=== PATIENT | male | born 1955 | race Caucasian/White ===

== ENCOUNTER → 2017-07-16 | Outpatient (POV) | payer MEDICARE, SELFPAY | PROVIDERS: Visit Provider Internal Medicine | DX: R07.9 Chest pain, unspecified (principal); I25.10 Atherosclerotic heart disease of native coronary artery without angina pectoris; I10 Essential (primary) hypertension; E78.5 Hyperlipidemia, unspecified | CPT/HCPCS: 36415; 80048; 82550; 82553; 84484; 93005 ==

== ENCOUNTER → 2018-01-26 09:57 | Outpatient (CLI) | payer MEDICARE, SELFPAY ==
[2018-01-26 11:05] LABS: Alanine Aminotransferase 48 U/L (12-78); Albumin Level 4.1 gm/dL (3.4-5.0); Alkaline Phosphatase 124 U/L (46-116); Aspartate Amino Transferase 25 U/L (15-37); Bilirubin,Direct 0.1 mg/dL (0.0-0.2); Bilirubin,Indirect 0.3 mg/dL (0.0-0.9); Bilirubin,Total 0.4 mg/dL (0.2-1.0); Chol/HDL Ratio 3.8 (1-3.5); Cholesterol 226 mg/dL (140-200); HDL Cholesterol 59 mg/dL (27-67); LDL Cholesterol 154 mg/dL (0-130); Total Protein,Serum 7.2 gm/dL (6.4-8.2); Triglycerides 63 mg/dL (30-200); VLDL Cholesterol 13 mg/dL (0-40)
== END ==
PROVIDERS: Visit Provider Urology
DX: E78.5 Hyperlipidemia, unspecified (principal); I10 Essential (primary) hypertension
CPT/HCPCS: 36415; 80061; 80076

== ENCOUNTER → 2018-04-14 10:47 | Outpatient (CLI) | payer MEDICARE, SELFPAY ==
[2018-04-14 13:39] LABS: Alanine Aminotransferase 57 U/L (12-78); Albumin Level 4.2 gm/dL (3.4-5.0); Alkaline Phosphatase 111 U/L (46-116); Aspartate Amino Transferase 26 U/L (15-37); Bilirubin,Direct 0.1 mg/dL (0.0-0.2); Bilirubin,Indirect 0.3 mg/dL (0.0-0.9); Bilirubin,Total 0.4 mg/dL (0.2-1.0); Chol/HDL Ratio 2.5 (1-3.5); Cholesterol 157 mg/dL (140-200); HDL Cholesterol 64 mg/dL (27-67); LDL Cholesterol 78 mg/dL (0-130); Total Protein,Serum 7.3 gm/dL (6.4-8.2); Triglycerides 75 mg/dL (30-200); VLDL Cholesterol 15 mg/dL (0-40)
== END ==
PROVIDERS: PCP Nurse Practitioner Family; Visit Provider Internal Medicine
DX: E78.4 Other hyperlipidemia (principal); I25.10 Atherosclerotic heart disease of native coronary artery without angina pectoris; I42.9 Cardiomyopathy, unspecified; J44.9 Chronic obstructive pulmonary disease, unspecified; N18.2 Chronic kidney disease, stage 2 (mild); R06.09 Other forms of dyspnea; Z87.891 Personal history of nicotine dependence
CPT/HCPCS: 36415; 80061; 80076

== ENCOUNTER → 2020-03-22 10:23 | Outpatient (CLI) | payer MEDICARE, SELFPAY ==
--- NOTE | 2020-03-22 10:24 | NM_ITS ---
APPROVED REPORT Exam: Nuclear Stress Test Indication: CAD, HX M.I., HTN, HYPERLIPIDEMIA, FM HX., ANGINA, SYNCOPE, FATIGUE Patient Location: Outpatient Stress Tech: Imani Nixon MA Tech:Gricel Anderson, ARRT, RT (R)(N) Ht: 5 ft 11 in Wt: 187 lbs HR: 74 bpm BP: 123 7/72 mmHg BSA: 2.05 m2 BMI: 26.0 History: CAD, HX M.I., HTN, HYPERLIPIDEMIA, FM HX., ANGINA, SYNCOPE, FATIGUE Procedure: Patient received a 0.4 mg of intravenous Lexiscan, resting heart rate 74 bpm, resting blood pressure 123/72 mmHg, with Lexiscan maximum heart rate achived was 98 bpm which is Less than 85 % of the maximum predicted heart rate and blood pressure was 143/65 mmHg. With Lexiscan, patient denied any complaint of chest pain. Electrocardiogram Resting electrocardiogram showed sinus rhythm, with Lexiscan there is less than 1.[address] segment depression noted from the baseline EKG. The EKG portion of the Lexiscan Myoview is nondiagnostic. Cardiac Stress and Resting SPECT Images: Cardiac Stress and Resting SPECT images were obtained using technetium 99m Myoview 32.0 mCi stress and 10.62 mCi at rest. Gated SPECT for the analysis of segmental wall motion and calculation of the ejection fraction also done. Cardiac stress and resting SPECT images show fixed defect involving the inferoseptal wall with normal contractility and the gated SPECT is likely secondary to soft tissue attenuation, no reversible ischemia seen. Computer derived ejection fraction is over 65% with no regional wall motion abnormality, right ventricle is normal size and contractility. Conclusion: 1. The EKG portion of the Lexiscan Myoview is nondiagnostic. 2. No scintigraphic evidence of reversible ischemia seen, computer derived ejection fraction is over 65% with no regional wall motion abnormality, right ventricle is normal size and contractility. 3. Likely normal Lexiscan Myoview study. Electronically signed by : Tyree Moore, 03/23/2020 10:36:06
--- NOTE | 2020-03-22 10:24 | CA_ITS ---
APPROVED REPORT EXAM: Comprehensive 2D, Doppler, and color-flow Echocardiogram Regional Sales Executive: Madeline Savage RT(R) Ht: 5 ft 11 in Wt: 187lbs BSA: 2.05 BP: 119/57 mmHg Indications: CP, CAD, edema, HTN, hyperlipidemia 2D Dimensions LVOT 1.84 cm (M/F) 1.5-2.5 M-Mode Dimensions RVDd 2.69 cm (0.9-2.6) LVDd 3.64 cm (3.5-5.7) LVDs 2.54 cm (3.5-5.7) IVSd 1.10 cm (0.6-1.1) PWd 1.21 cm (0.6-1.1) EF (Teich) 58.50% FS 30.20% EDV (Teich) 55.90 mL ESV (Teich) 23.20 mL LV Diastology E/A Ratio 1.00 Mitral Valve MV A Velocity 87.00 (40-130 cm/s) Left Ventricle Left atrium is mildly enlarged, left ventricle is normal size, mild concentric left ventricular hypertrophy, visually estimated ejection fraction 55% with no regional wall motion abnormality. Grade 1 diastolic dysfunction seen without tissue Doppler evidence of raise left atrial pressure. Right Ventricle Right atrium and right ventricular normal size and contractility. Aortic Valve Aortic valve is thickened and calcified leaflet, display good mobility, there is no aortic stenosis or aortic insufficiency. Mitral Valve Mitral valve is grossly normal, there is mild mitral regurgitation. Tricuspid Valve Tricuspid valve is grossly normal, there is mild tricuspid regurgitation, tricuspid regurgitation jet velocity is inadequate for calculation of the right ventricular systolic pressure. Pulmonic Valve Pulmonic valve is poorly visualized. Great Vessels Aortic root is normal size. Pericardium No significant pericardial effusion noted. Conclusion 1. Mildly enlarged left atrium, normal left ventricular size, mild concentric left ventricular hypertrophy, visually estimated ejection fraction 55% with no regional wall motion abnormality, grade 1 diastolic dysfunction seen without tissue Doppler evidence of raise left atrial pressure. 2. Mild mitral and tricuspid regurgitation. 3. No significant pericardial effusion noted. Electronically signed by : Tyree Moore, 03/23/2020 14:57:50
--- NOTE | 2020-03-22 10:24 | CA_ITS ---
APPROVED REPORT Exam: Pharmacologic Technologist: Parvin Koenig, Ht: 5 ft 11 in Wt: 187 lbs BSA: 2.05 m2 HR: 74 bpm BP: 123/72 mmHg Medical History Medications: Carvedilol,,,,, Buspirone,,,,, CloPIdogrel,,,,, Nitroglycerin,,,,, AtorvaASTATIN,,,,, AmOLODIPNE,,,,, Omepazole,,,,, Asprin,,,,, Stress Test Details Test: LEXISCAN HR Resting HR: 82 bpm Max Heart Rate (APMHR): 156 bpm Max HR Achieved: 107 bpm Target HR (85% APMHR): 132 bpm % of APMHR: 68 Recovery HR: 94 bpm BP Resting BP: 123/72 mmHg Max BP: 149/71 mmHg Recovery BP: 141.0/69.0 mmHg ECG Clinical Exercise duration: 04:00 min Highest Stage Achieved: Exercise capacity: 1.0 METs Stress ECG Conclusion Resting EKG: Normal Sinus Rhythm, Low Voltage QRS Symptoms: Shortness of Air, Nausea, Malaise. No Chest Pain Arrhythmia/Ectopy: None ST-T Changes: No Significant changes Conclusion: Unremarkable Lexican stress, Myoview reported separately Test Summary REST . . . . . . . Resting REST 02:57 . . 82 . 123/ 72 . . Stage 1 . . . . . . . Myoview Injected Stage 1 01:00 . . 107 . . . . Stage 2 01:00 . . 94 . 143/ 65 . . Stage 3 01:00 . . 93 . 138/ 68 . . Stage 4 01:00 . . 95 . 149/ 71 . Stop exercise at 04:00 RECOVERY 01:00 . . 95 . . . . RECOVERY 02:00 . . 85 . 141/ 69 . . RECOVERY 03:00 . . 87 . 144/ 66 . . RECOVERY 04:00 . . 79 . 144/ 66 . . RECOVERY 04:29 . . 85 . 124/ 60 . . Electronically signed by : Tyree Moore, 03/23/2020 10:34:12
--- NOTE | 2020-03-22 12:59 | HMH.ITSHM ---
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 []OMEPRAZOLE NITRO LISINOPRIL CLOPIDOGREL CARVEDILOL ATORVASTATIN ASA AMLODIPINE
== END ==
PROVIDERS: PCP Family Medicine; Visit Provider Internal Medicine Cardiovascular Disease
DX: E78.5 Hyperlipidemia, unspecified (principal); I10 Essential (primary) hypertension; I20.9 Angina pectoris, unspecified; R42 Dizziness and giddiness; R53.83 Other fatigue; R60.9 Edema, unspecified
CPT/HCPCS: 78452; 93017; 93306; A9502; J2785

== ENCOUNTER → 2020-10-09 09:29 | Outpatient (CLI) | payer MEDICARE, SELFPAY ==
[2020-10-09 10:34] LABS: Alanine Aminotransferase 48 U/L (12-78); Albumin Level 4.4 g/dl (3.5-5.0); Alkaline Phosphatase 113 U/L (38-126); Aspartate Amino Transferase 42 U/L (17-59); Bilirubin,Indirect 0.4 mg/dL (0.0-0.9); Bilirubin,Total 0.4 mg/dl (0.2-1.3); Bilirubin,Unconjugated 0.4 mg/dL (0.0-1.1); Chol/HDL Ratio 3.1 (1-3.5); Cholesterol 191 mg/dl (140-200); HDL Cholesterol 61 mg/dl (40-60); Total Protein,Serum 7.6 g/dl (6.3-8.2); Triglycerides 86 mg/dl (30-150); VLDL Cholesterol 17 mg/dL (0-40)
[2020-10-09 10:45] LABS: Direct LDL Cholesterol 92.69 mg/dL (100-129)
== END ==
PROVIDERS: Visit Provider Physician Assistant
DX: E78.5 Hyperlipidemia, unspecified (principal); I20.9 Angina pectoris, unspecified
CPT/HCPCS: 36415; 80061; 80076

== ENCOUNTER → 2021-07-10 10:25 | Outpatient (CLI) | payer MEDICARE, SELFPAY ==
[2021-07-10 12:07] LABS: Alanine Aminotransferase 38 U/L (12-78); Albumin Level 4.5 g/dl (3.5-5.0); Alkaline Phosphatase 104 U/L (38-126); Aspartate Amino Transferase 41 U/L (17-59); Bilirubin,Direct 0.1 mg/dl (0.0-0.4); Bilirubin,Indirect 0.4 mg/dL (0.0-0.9); Bilirubin,Total 0.5 mg/dl (0.2-1.3); Bilirubin,Unconjugated 0.3 mg/dL (0.0-1.1); Chol/HDL Ratio 1.8 (1-3.5); Cholesterol 130 mg/dl (140-200); HDL Cholesterol 71 mg/dl (40-60); Total Protein,Serum 7.3 g/dl (6.3-8.2); Triglycerides 71 mg/dl (30-150); VLDL Cholesterol 14 mg/dL (0-40)
[2021-07-10 12:18] LABS: Direct LDL Cholesterol 42.18 mg/dL (100-129)
== END ==
PROVIDERS: Visit Provider Internal Medicine
DX: E78.5 Hyperlipidemia, unspecified (principal); I10 Essential (primary) hypertension; I20.9 Angina pectoris, unspecified
CPT/HCPCS: 36415; 80061; 80076

== ENCOUNTER → 2022-12-10 12:22 | Outpatient (CLI) | payer MEDICARE, SELFPAY ==
--- NOTE | 2022-12-10 | CA_ITS ---
APPROVED REPORT Exam: Pharmacologic Technologist: SANTOS JEFFRIES, Ht: 5 ft 11 in Wt: 190 lbs BSA: 2.06 m2 HR: 74 bpm BP: 130/68 mmHg Rhythm: NSR, low voltage QRS Indications: SOA Medical History Medications: Amlodipine,,,,, Lisinopril,,,,, Asa,,,,, Pantoprazole,,,,, Carvedilol,,,,, Buspirone,,,,, MeLOXICAM,,,,, Plavix,,,,, Fluoxetine,,,,, Nitro,,,,, MethIMAZOLE,,,,, Evolocumab,,,,, Cardiac Risk Factors: HTN, Hyperlipidemia, Smoking Stress Test Details Test: LEXISCAN HR Resting HR: 78 bpm Max Heart Rate (APMHR): 154 bpm Max HR Achieved: 93 bpm Target HR (85% APMHR): 131 bpm % of APMHR: 60 Recovery HR: 76 bpm BP Resting BP: 130/68 mmHg Max BP: 141/69 mmHg Recovery BP: 127.0/71.0 mmHg ECG Resting ECG: NSR, low voltage QRS Stress ECG: No change Clinical Exercise duration: 04:05 min Highest Stage Achieved: Stress ECG Conclusion During lexiscan pt experienced mild chest pressure, SOA, and mild stomach discomfort. No arrhythmias noted. At baseline, ECG demosntrated normal sinus rhythm with low voltages. Following regadenoson administration, no significant changes were present. Unremarkable lexiscan stress. Myoview images reported separately. Test Summary REST . . . . . . . Resting Sitting REST 04:05 . . 78 . 130/ 68 . . Stage 1 01:00 . . 93 . . . . Stage 2 . . . . . . . chest pressure Stage 2 01:00 . . 83 . 141/ 69 . . Stage 3 01:00 . . 80 . 141/ 67 . . Stage 4 01:00 . . 79 . 132/ 72 . . Stage 4 01:05 . . 78 . 132/ 72 . Stop exercise at 04:05 RECOVERY 01:00 . . 76 . . . . RECOVERY 02:00 . . 82 . 127/ 71 . . RECOVERY 03:00 . . 77 . 132/ 61 . . RECOVERY 03:19 . . 75 . 132/ 61 . . Electronically signed by : Aydee Gonzales, 12/10/2022 23:16:08
--- NOTE | 2022-12-10 12:23 | NM_ITS ---
APPROVED REPORT Exam: Nuclear Stress Test Indication: soa..fatigue..syncope..chest pain Patient Location: Outpatient Stress Tech: Betty Junior [place] Tech:PUMA Cabral RT (R)(N)(M) Ht: 5 ft 11 in Wt: 190 lbs HR: 74 bpm BP: 130/68 mmHg BSA: 2.06 m2 TID: 1.05 BMI: 26.4 History: soa..fatigue..syncope..chest pain Procedure: Patient received 0.4 mg of intravenous Lexiscan, resting heart rate 74 bpm, resting blood pressure 130/68 mmHg, with Lexiscan maximum heart rate achieved was 87 bpm which is 85 % of the maximum predicted heart rate and blood pressure was 141/69 mmHg. Cardiac Stress and Resting SPECT Images: Cardiac Stress and Resting SPECT images were obtained using technetium 99m Myoview 30.8 mCi stress and 10.87 mCi at rest. Resting and stress imaging demonstrates a medum-sized, moderate, predominantly fixed perfusion defect in the basal septal LV wall with some regional reversibility. Gated imaging demonstrates a normal LV global systolic function. The basal septal wall appears mildly hypokinetic. LVEF is calculated at 72% Conclusion: Medum-sized, moderate, predominantly fixed perfusion defect in the basal septal LV wall with a surrounding region of reversibility. 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 Normal LV global systolic function with mild hypokinesis in the basal septal wall. LVEF is calculated at 72%. Electronically signed by : Aydee Gonzales, 12/10/2022 23:33:48
== END ==
PROVIDERS: PCP Family Medicine; Visit Provider Physician Assistant
DX: I10 Essential (primary) hypertension; I25.10 Atherosclerotic heart disease of native coronary artery without angina pectoris; N18.2 Chronic kidney disease, stage 2 (mild); R07.9 Chest pain, unspecified; E78.49 Other hyperlipidemia
CPT/HCPCS: 78452; 93017; 93306; A9502; J2785

== ENCOUNTER 2022-12-24 09:44 | Day surgery (SDC) | payer MEDICARE, SELFPAY ==
[2022-12-24] VITALS (10 sets, daily range): BP systolic 95–138; BP diastolic 40–77; PULSE 75–92; RESP 16–18; TEMP 36.9; O2SAT 91–97; BMI 26.6
--- NOTE | 2022-12-24 07:06 | IR_ITS ---
APPROVED REPORT Patient Location: Outpatient PROCEDURES Selective coronary angiogram INDICATION Angina pectoris, Abnormal Myoview Informed consent was obtained prior to the procedure. COMPLICATIONS None Estimated Blood Loss: Less than 10 mls TECHNIQUE One percent lidocaine used to anesthetize the right anterior aspect of the wrist. The right radial artery was accessed via the Seldinger technique. A 6 Kyrgyz sheath was placed in the right radial artery. 150 mg magnesium sulfate, 800 mcg of nitroglycerin, 1mg Lidocaine and 5000 U Heparin were given through the arterial sheath. The papa catheter was also used to perform selective coronary angiogram. At the end of the procedure the sheath was removed good hemostasis was achieved using Traclet band, patient was transferred to the postop holding area in stable condition. ANGIOGRAPHIC RESULTS The left main artery Normal The left anterior descending artery Mild proximal and mid vessel 10% luminal irregularities The circumflex artery Has a stent in the proximal to mid segment which is widely patent free of in-stent restenosis with excellent proximal distal transitioning The right coronary artery Has a stent in the mid segment which is widely patent free of in-stent restenosis with excellent proximal distal transitioning The ALCARAZ ventriculogram reveals Not performed The left ventricular end-diastolic pressure Not measured IMPRESSION Check echocardiogram to assess left ventricular function Widely patent coronaries as described above Patient was previously diagnosed with obstructive sleep apnea and prescribed CPAP machine however he has been noncompliant. I suspect patient's severe untreated obstructive sleep apnea is the etiology for associated symptoms PLAN 1. Refer to Dr. Mack for reassessment of obstructive sleep apnea with possible reimplementation of CPAP machine if she feels appropriate 2. Risk factor modification for coronary disease 3. Continue medical management Electronically signed by : Joel Helms MD 12/24/2022 14:38:33
[2022-12-24 10:25] LABS: Basophils # 0.1 K/mm3 (0-0.2); Basophils % 0.7 % (0.1-2.0); Chloride 102 mmol/L (98-107); Eosinophils # 0.1 K/mm3 (0.0-0.4); Eosinophils % 1.4 % (0.1-12.0); Hematocrit 45.8 % (42.0-52.0); Lymphocytes # 1.8 K/mm3 (0.7-4.5); Lymphocytes % 19.1 % (10-50); Mean Corpuscular HGB Conc 32.8 g/dL (31.8-35.4); Mean Corpuscular Hemoglobin 30.5 pg (27.0-31.2); Mean Corpuscular Volume 93.2 fl (80-94); Mean Platelet Volume 6.8 fl (7.4-10.4); Monocytes # 0.7 K/mm3 (0.1-1.0); Monocytes % 7.3 % (1.7-9.3); Neutrophils # 6.7 K/mm3 (1.8-7.8); Neutrophils % 71.6 % (37.0-80.0); Platelet Count 297 K/mm3 (142-424); Red Blood Count 4.92 M/mm3 (4.60-6.20); Red Cell Distribution Width 12.9 % (11.5-17.5); White Blood Count 9.3 K/mm3 (4.8-10.8)
[2022-12-24 10:26] LABS: Potassium 4.5 mmoL/L (3.5-5.1); Sodium 140 mmol/L (136-145)
[2022-12-24 10:28] LABS: Blood Urea Nitrogen 23 mg/dl (9-20); Creatinine Clearance Estimated 52 mL/min (50-200); Estimated Glomerular Filt Rate 41 ml/min (>60); GFR (African American) 49 ML/MIN (>60)
[2022-12-24 10:29] LABS: Anion Gap 15.5 mEq/L (5-15); Calcium 9.4 mg/dl (8.4-10.2); Carbon Dioxide 27 mmol/L (22.0-30.0); Glucose 125 mg/dl (74-100)
== END 2022-12-24 15:14 | disposition home or self-care (01) ==
PROVIDERS: PCP Family Medicine; Visit Provider Internal Medicine
DX: I25.118 Atherosclerotic heart disease of native coronary artery with other forms of angina pectoris (principal); I12.9 Hypertensive chronic kidney disease with stage 1 through stage 4 chronic kidney disease, or unspecified chronic kidney disease; N18.2 Chronic kidney disease, stage 2 (mild); R94.30 Abnormal result of cardiovascular function study, unspecified; Z95.5 Presence of coronary angioplasty implant and graft
CPT/HCPCS: 80048; 85025; 93458; 99152; C1725; C1769; J1644; Q9967

== ENCOUNTER → 2023-02-07 12:59 | Outpatient (CLI) | payer MEDICARE, SELFPAY | PROVIDERS: PCP Family Medicine; Visit Provider Specialist | DX: G47.33 Obstructive sleep apnea (adult) (pediatric) (principal) | CPT/HCPCS: G0399 ==

== ENCOUNTER → 2023-06-10 20:11 | Outpatient (CLI) | payer MEDICARE, SELFPAY | PROVIDERS: PCP Family Medicine; Visit Provider Specialist | DX: G47.33 Obstructive sleep apnea (adult) (pediatric) (principal); G47.31 Primary central sleep apnea | CPT/HCPCS: 95811 ==

== ENCOUNTER 2024-06-28 13:54 | Outpatient (CLI) | payer MEDICARE, SELFPAY ==
[2024-06-28 14:47] LABS: Basophils # 0.1 K/mm3 (0-0.2); Basophils % 0.9 % (0.1-2.0); Eosinophils # 0.1 K/mm3 (0.0-0.4); Eosinophils % 1.1 % (0.1-12.0); Hematocrit 45.4 % (42.0-52.0); Hemoglobin 15.3 g/dL (14.1-18.0); Lymphocytes # 2.6 K/mm3 (0.7-4.5); Mean Corpuscular HGB Conc 33.7 g/dL (31.8-35.4); Mean Corpuscular Hemoglobin 31.2 pg (27.0-31.2); Mean Corpuscular Volume 92.5 fl (80-94); Mean Platelet Volume 7.2 fl (7.4-10.4); Monocytes # 0.7 K/mm3 (0.1-1.0); Monocytes % 7.3 % (1.7-9.3); Neutrophils # 6.2 K/mm3 (1.8-7.8); Neutrophils % 63.6 % (37.0-80.0); Platelet Count 277 K/mm3 (142-424); Red Blood Count 4.91 M/mm3 (4.60-6.20); Red Cell Distribution Width 13.5 % (11.5-17.5); White Blood Count 9.7 K/mm3 (4.8-10.8)
[2024-06-28 15:25] LABS: Alanine Aminotransferase 36 U/L (12-78); Albumin Level 4.4 g/dl (3.5-5.0); Alkaline Phosphatase 119 U/L (38-126); Anion Gap 13.4 mEq/L (5-15); Aspartate Amino Transferase 33 U/L (17-59); Bilirubin,Direct 0.3 mg/dl (0.0-0.4); Bilirubin,Indirect 0.1 mg/dL (0.0-0.9); Bilirubin,Total 0.4 mg/dl (0.2-1.3); Blood Urea Nitrogen 20 mg/dl (9-20); Calcium 9.3 mg/dl (8.4-10.2); Carbon Dioxide 25 mmol/L (22.0-30.0); Chloride 107 mmol/L (98-107); Chol/HDL Ratio 2.1 (1-3.5); Cholesterol 120 mg/dl (140-200); Estimated Glomerular Filt Rate 50 ml/min (>60); GFR (African American) 61 ML/MIN (>60); Glucose 98 mg/dl (74-100); HDL Cholesterol 58 mg/dl (40-60); Potassium 4.4 mmoL/L (3.5-5.1); Sodium 141 mmol/L (136-145); Total Protein,Serum 6.7 g/dl (6.3-8.2); Triglycerides 138 mg/dl (30-150); VLDL Cholesterol 28 mg/dL (0-40)
[2024-06-28 15:36] LABS: Direct LDL Cholesterol 42.44 mg/dL (100-129)
[2024-06-28 15:56] LABS: Thyroid Stimulating Hormone 2.12 uIU/mL (0.465-4.68)
== END 2024-06-28 23:59 | disposition home or self-care (01) ==
LOC: LAB 13:57
PROVIDERS: PCP Family Medicine; Visit Provider Physician Assistant
DX: N18.32 Chronic kidney disease, stage 3b (principal); I25.10 Atherosclerotic heart disease of native coronary artery without angina pectoris; G47.33 Obstructive sleep apnea (adult) (pediatric); I10 Essential (primary) hypertension; J44.9 Chronic obstructive pulmonary disease, unspecified; R00.2 Palpitations; E78.49 Other hyperlipidemia
CPT/HCPCS: 36415; 80048; 80061; 80076; 83735; 84439; 84443; 85025; 93225; 93227

== ENCOUNTER 2024-11-17 13:54 | Outpatient (CLI) | payer MEDICARE, SELFPAY ==
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
--- OUTSIDE RECORDS SUMMARY | 2024-11-17 13:57 | XMS_ITS | Data Portability ---
Author Organization [facility] [place] [facility] Address [address] [place] [address] Care Team Providers Care Application Specialist Name Role Phone ELEONORA BOND Referring Provider [phone] LAWRENCE VILLARREAL Primary Care Provider MARIANGEL MEDRANO Yoga Coordinator Assessment Encounter Date Assessment Date Assessment LastModified by Organization Details LastModified Time 02/24/2024 02/24/2024 Mr. Mancilla will finish the course of Bactrim. He understands that if he should have any worsening symptoms such as worsening redness or any drainage or any issues with the incisions themselves to give our office a call. He and his understand and agree with this plan. [email or web address] Not available 02/24/2024 11:18:41 05/05/2024 05/05/2024 This is a 69-year-old gentleman seen today for follow-up evaluation of low back pain and stenosis. Recently underwent RFA which has provided ongoing relief. Approximately 2 weeks ago began developing pain referring in the right L3 distribution and occasionally a right L5 distribution. It went away for a couple days but now has returned. Symptoms are not enough to pursue treatment at this time PMH: PSHx: L4-5 fusion, IT pump s/p [...] therapy has included: Bilateral L2-3 MBB RFA short-term benefit Previous IT pump entering at L1-2 s/p explant 03/13/2022 right L3-4 and L4-5 TFESI Presentation is consistent with adjacent level spondylosis and stenosis. I recommend: 1. Consider L2-3 IL DANY for adjacent level stenosis. He will notify me if he wishes to proceed. 2. Refilled baclofen 3. Follow-up in 3 months External records were reviewed and discussed as above, including imaging, clinical notes, and relevant labs. Not available 05/05/2024 13:28:13 08/04/2024 08/04/2024 This is a 69-year-old gentleman seen today for follow-up evaluation. He still has some intermittent radicular symptoms and low back pain that is associated with ambulation. PMH: PSHx: L4-5 fusion, IT pump s/p [...] he wishes to proceed. 2. Refilled baclofen 3. Follow-up in 3 months 4. Alternative considerations would include SCS or neurosurgical evaluation External records were reviewed and discussed as above, including imaging, clinical notes, and relevant labs. Not available 08/04/2024 13:29:21 10/20/2024 10/20/2024 This is a 69-year-old gentleman [...] including imaging, clinical notes, and relevant labs. Not available 10/20/2024 13:40:40 Plan of Treatment Reminders Order Date Submit Date Provider Last Modified By Organization Details Last Modified Time Details Appointments RECHECK 2024 02:15P Stevenson BOND MD Not available Not available Not available Lab None recorded. Referral None recorded. Procedures None recorded. Surgeries None recorded. Imaging None recorded. Medication Orders baclofen 10 mg tablet 2024 025 [facility]/Pharmacy #[id number], [address] [place] [address], [address], 10/20/2024 14:55:38 baclofen 10 mg tablet 2023 024 [facility]/Pharmacy #[id number], [address] [place], [address], 05/05/2024 13:29:21 Patient TargetsNo targets recorded. Patient InstructionsNo instructions recorded. Reason for Referral None Reported. Problems No Known Problems Procedures Surgical History Date Name Laterality Status Provider Name and Address Organization Details Recorded Time 4 Lumbar RFA Bilateral - Toan completed ELEONORA BOND MD [address] [place] [address], [phone], [facility] 03/15/2024 12:57:15 4 Lumbar MBB bilateral 2 level - Toan completed ELEONORA BOND MD [address] [place] [address], [phone], [facility] 02/19/2024 14:13:46 4 Lumbar MBB bilateral 2 level - Toan completed ELEONORA BOND MD [address] [place] [address], [phone], [facility] 02/09/2024 14:14:[address] [facility] 10/23/2023 13:04:23 0 procedure on appendix completed [facility] 10/23/2023 13:04:39 Imaging Results None recorded. Procedure Notes None recorded. Medical Equipment None Reported. Allergies Allergen ID Allergen Name Allergen Category Reaction Reaction Severity Criticality Documentation Date Start Date Code Code System Note Provider Name and Address Organization Details Recorded Time 765768 Product containin g penicilli n (product) medicatio n Not available Not available Not available 10/02/2022 64250 8001 SNOMED Evette Tirado [facility] 13:24:16 009212 Non-stero idal anti-infl ammatory agent (product) medicatio n Not available Not available Not available 05/05/2024 64506 005 SNJETT Bello [facility], [facility] 13:15:13 Medications Name Sig Start Date Stop [...] 6 hours by oral route as needed. 01/13 completed Not Available Not Available Not Available [...] height Body mass index (BMI) Body weight Body temperature Oxygen saturation Oxygen saturation in Arterial blood by Pulse oximetry Heart rate Systolic blood pressure Diastolic blood pressure Provider Name and Address Organization Details Last Updated DateTime 4 180.34 cm 24.7 kg/m2 59292.8 5 g 97.9 [degF] 97 % 97 % 86 /min 110 mm[Hg] 60 mm[Hg] Adriana Bello [facility] 4 13:12:04 Date Recorded Body height Body mass index (BMI) Body weight Body temperature Oxygen saturation Oxygen saturation in Arterial blood by Pulse oximetry Heart rate Systolic blood pressure Diastolic blood pressure Provider Name and Address Organization Details Last Updated DateTime 5 180.34 cm 27.2 kg/m2 01935.2 1 g 97.2 [degF] 98 % 98 % 72 /min 108 mm[Hg] 58 mm[Hg] Mariam Kashmir [facility] 5 13:16:06 Date Recorded Body height Body mass index (BMI) Body weight Heart rate Oxygen saturation Oxygen saturation in Arterial blood by Pulse oximetry Body temperature Systolic blood pressure Diastolic blood pressure Provider Name and Address Organization Details Last Updated DateTime 5 180.34 cm 27.5 kg/m2 70791.8 g 71 /min 99 % 99 % 97.8 [degF] 112 mm[Hg] 58 mm[Hg] Gayathri Rodriguez [facility] 13:08:14 Social History Question Answer Notes LastModified by Organizat ion Details LastModified Time Tobacco Smoking Status Former Smoker Evette Tirado evangelist [facility] 10/02/2022 13:28:11 What Is Your Level Of Alcohol Consumption? None Information not available 10/02/2022 Are You Currently Employed? No [email or web address] Information not available 10/20/2024 When Did You Quit Smoking? 16+yearssinc [email or web address] Information not available 10/02/2022 What Was The Date Of Your Most Recent Tobacco Screening? 10/20/2024 [email or web address] Information not available 10/20/2024 What Is Your Relationship Status? [email or web address] Information not available 10/20/2024 Do You Use [...] Details LastModified Time Unspecified Relation Diabetes mellitus [email or web address] Not available 10/2023 13:03:39 Unspecified Relation Hypertensive disorder [email or web address] Not available 10/2023 13:03:49 Unspecified Relation Heart disease [email or web address] Not available 10/2023 13:03:56 Medical History Condition Response Kidney Stones N Blood Transfusion N Emphysema N Sexually Transmitted Disease N Depression Y COPD N Pneumonia N Anxiety Disorder N Arthritis N Blood Clot N Cancer N Stroke N Neurologic Disorder N Fibromyalgia N Headaches N Kidney Disease Y Endocrine Disorder N Heart Problems Y Skin Problems N Meningitis N Ulcers N Rheumatic Fever N Bleeding Disorder N Tuberculosis N AIDS/HIV N Asthma N Thyroid Disorder Y Hepatitis N Colon/Rectal Disorders N Glaucoma N Measles N Varicose Veins N Attempted Suicide N Hearing Loss Y Radiation Therapy N Blood Thinners Y High Cholesterol Y Liver Disease N Heart Attack ([place]) Y Diabetes N Epilepsy/Seizures N Sleep Apnea Y Hypertension Y Osteoporosis N Past Encounters Encounter ID Performer Location Encounter Start Date Encounter Closed Date Diagnosis/Indication Diagnosis SNOMED-CT Code Diagnosis ICD10 Code Diagnosis Note [id number] ELEONORA BOND MD [facility] [address] [place] [address] 1 10/02/2022 13:07:58 10/02/2022 14:15:26 Degeneration of lumbar intervertebral disc 30076477 M51.36 Lumbar radiculopathy 128 279572 M54.16 [id number] ELEONORA BOND MD [facility] [address] [place] [address] 1 01/03/2023 12:56:54 01/03/2023 15:15:43 Degeneration of lumbar intervertebral disc 08070507 M51.36 Lumbar radiculopathy 128 196349 M54.16 Lumbar post-laminectomy syndrome 532515133 M96.1 [id number] RCAH COLIN PA-C PA[facility] [address] [place] [address] 1 04/02/2023 12:44:01 04/02/2023 15:54:45 Lumbar post-laminectomy syndrome 677920199 M96.1 Degenerati on of lumbar intervertebral disc 75161403 M51.36 Lumbar radiculopathy 128 377892 M54.16 [id number] ELEONORA BOND MD PAIN MED[facility]INE [address] [place] [address] 1 06/18/2023 12:59:16 06/18/2023 15:00:30 Degeneration of lumbar intervertebral disc 28562810 M51.36 Lumbar radiculopathy 128 527615 M54.16 Lumbar post-laminectomy syndrome 844699983 M96.1 Opioid dependence 481077 00 F11.23 [id number] ELEONORA BOND MD [facility] [address] [place] [address] 1 07/09/2023 13:01:59 07/10/2023 09:21:49 Lumbar radiculopathy 730425154 M54.16 Lumbar post-laminectomy syndrome 954944362 M96.1 [id number] ELEONORA BOND MD PAIN MEDICINE [address] [place] [address] 1 07/23/2023 12:50:58 07/23/2023 16:14:09 Degeneration of lumbar intervertebral disc 48597413 M51.36 Displaceme nt of lumbar intervertebral disc 2819600541 M51.26 Lumbar radiculopathy 128 087055 M54.16 Lumbar spondylosis 63793 0009 M47.816 Low back pain 998252182 M54.51 Spinal claudia nosis of lumbar region 62563850 M48.062 Inflammati on of sacroiliac joint 31492790 M46.1 Lumbar post-laminectomy syndrome 003732328 M96.1 [id number] ELEONORA BOND MD [facility]INE [address] [place] [address] 1 08/14/2023 14:44:11 08/15/2023 10:15:15 Degeneration of lumbar intervertebral disc 66095678 M51.36 Lumbar radiculopathy 128 356214 M54.16 Lumbar post-laminectomy syndrome 275100404 M96.1 [id number] ELEONORA BOND MD [facility]INE [address] [place] [address] 1 08/20/2023 13:10:26 08/20/2023 14:42:16 Lumbar radiculopathy 715737641 M54.16 Lumbar spondylosis 92222 0009 M47.816 Lumbar post-laminectomy syndrome 122014131 M96.1 [id number] ELEONORA BOND MD PAIN MED[facility]INE [address] [place] [address] 1 09/17/2023 13:07:38 09/18/2023 07:53:29 Degeneration of lumbar intervertebral disc 30144763 M51.36 Lumbar radiculopathy 128 318125 M54.16 Lumbar post-laminectomy syndrome 003688932 M96.1 [id number] ERICA GARZA PA-C [facility] [address] [facility] [place] [address] 10/23/2023 12:44:54 10/24/2023 10:50:05 Low back pain 327490262 M54.50 Intratheca l implantable infusion pump in situ 0482841956 Z97.8 Lumbar radiculopathy 128 100110 M54.16 [id number] ELEONORA BOND MD PAIN MEDICINE [address] [place] [address] 1 11/12/2023 13:00:32 11/12/2023 16:18:29 Lumbar radiculopathy 863107242 M54.16 Degenerati on of lumbar intervertebral disc 16918942 M51.36 Lumbar post-laminectomy syndrome 404663459 M96.1 Long-term drug therapy 438695015 Z79.899 [id number] GUILLERMO MOORE [facility] [address] [facility] [place] [address] 01/06/2024 12:42:40 01/10/2024 04:16:12 [id number] ELEONORA BOND MD PAIN MEDICINE [address] [place] [address] 1 01/14/2024 13:58:17 01/15/2024 04:16:46 Degeneration of lumbar intervertebral disc 34343329 M51.36 Displaceme nt of lumbar intervertebral disc 5402068885 M51.26 Lumbar spondylosis 52501 0009 M47.816 Spinal claudia nosis of lumbar region 84608480 M48.062 Lumbar post-laminectomy syndrome 103395624 M96.1 [id number] GUILLERMO MOORE MD SURGERY SCHEDULE [address] [place] [address] 1 01/13/2024 14:18:45 01/16/2024 16:24:57 [id number] GUILLERMO MOORE MD [facility] [address] [facility] [place] [address] 01/27/2024 11:00:38 01/28/2024 04:43:22 Chronic pain syndrome 136137740 G89.4 [id number] ELEONORA BOND MD [facility] [address] [place] [address], [place] [address] 02/09/2024 12:37:51 02/09/2024 14:30:39 Lumbar spondylosis 695955867 M47.816 [id number] ELEONORA BOND MD [facility] N[facility] [address] [place] [address], [place] [address] 02/19/2024 13:22:11 02/19/2024 14:52:34 Lumbar spondylosis 763496070 M47.816 [id number] MITCHELL RUIZ PA-C [facility] [address] [place] [address] 02/24/2024 10:47:15 02/27/2024 13:42:31 Infection of skin and/or subcutaneous tissue 87900945 L08.9 [id number] ELEONORA BOND MD [facility] [address] [facility] [place] [address] 1 03/15/2024 12:27:45 03/15/2024 13:54:32 Lumbar spondylosis 206547131 M47.816 [id number] ELEONORA BOND MD PAIN MEDICINE [address] [place] [address] 1 05/05/2024 12:58:18 05/05/2024 15:22:31 Lumbar radiculopathy 207296747 M54.16 Lumbar spondylosis 12743 0009 M47.816 Spinal claudia nosis of lumbar region 03438144 M48.062 Lumbar post-laminectomy syndrome 444602172 M96.1 [id number] ELEONORA BOND MD PAIN MEDICINE [address] [place] [address] 1 08/04/2024 12:56:50 08/04/2024 16:32:12 Degeneration of lumbar intervertebral disc 38140328 M51.369 Lumbar radiculopathy 128 146722 M54.16 Lumbar spondylosis 42139 0009 M47.816 Spinal claudia nosis of lumbar region 26508090 M48.062 Lumbar post-laminectomy syndrome 834680993 M96.1 [id number] ELEONORA BOND MD PAIN MEDICINE [address] [place] [address] 1 10/20/2024 12:52:06 10/20/2024 15:58:58 Lumbar radiculopathy 641668089 M54.16 Degenerati on of lumbar intervertebral disc 58588715 M51.369 Lumbar spondylosis 50139 0009 M47.816 Spinal claudia nosis of lumbar region 45327177 M48.062 Lumbar post-laminectomy syndrome 825033163 M96.1 Health Concerns Section Related Observation LastModified by Organization Detai ls LastModified Time None Recorded Concern Status LastModified by Organization Details LastModified Time None Recorded Advance Directives Directive None Recorded Payers Encounter Date Sequence Insurance Name Policy Number Policy Up Covered Member ID Up Member ID Guarantor Name 02/24/2024 [employer] Jae Mancilla 05/05/2024 [employer] Jae Mancilla 08/04/2024 [employer] Jae Mancilla 10/20/2024 [employer] Jae Mancilla Notes Date Note Type Note Provider Name and Address Organization Details Recorded Time 4 text/html Mr. Mancilla is s/p removal of intrathecal pain pump system on 12/19/23. He underwent medial branch blocks with Dr. Bond on 02/18. At that time he brought to Dr. Bond's attention some redness superior to his abdominal incision. He was started on Bactrim. He reports that since that time the area has improved and become less red. He denies fever. MITCHELL RUIZ PA-C [address] [place], [address], [facility] 02/24/2024 11:19:12 4 text/html Injection follow upReported bypatient.Location:low back Most recent procedures:lumbar MBB RFA (Cesario L4-5 RFA); date: (03/15/24) % of reliefpain relief 65% Duration of relief:ongoing Severity:current pain 5/10; average pain 5/10 Woundinjection site healed well; no fever; no bleeding ELEONORA BOND MD [address] [place], [address], [facility] 05/05/2024 13:29:23 5 text/html Pain Management L-spine GISHReported bypatient.Location:radiati ng to the RLE; LBP Quality:throbbing;aching Severity:current pain level 3.5/10; worst pain 6-7/10;worsening;interfere nce with sleep;interference with work Duration:constant Onset/Timing:chronic; 10 [...] home exercise plan (HEP)Date completed: 10/02/22 Previous Senior Lead Project Manager:none Jae Mancilla is a 68 yo male here today for a 2 mth FUP med refill. Pt states he had his pain pump removed on 12/19/[address] Guillermo Moore, Pt reports he is in a lot of pain in middle of lower back. Pt also states he has not been taking the gabapentin for about 1 mth. ELEONORA BOND MD [address] [place] [address], [phone], [facility] 08/04/2024 13:29:43 5 text/html Pain Management L-spine GISHReported bypatient.Location:radiati ng [...] home exercise plan (HEP)Date completed: 10/02/22 Previous Senior Lead Project Manager:none Jae Mancilla is a 69 yo male here today for 3 mth Med RF. Pt reports the baclofen gives him about 60% pain relief, helps him sleep through the night. ELEONORA BOND MD [address] [place] [address], [phone], [facility] 10/20/2024 13:41:03
== END 2024-11-17 23:59 | disposition home or self-care (01) ==
LOC: RT 13:54
PROVIDERS: PCP Family Medicine; Visit Provider Physician Assistant
DX: R00.2 Palpitations (principal); I25.119 Atherosclerotic heart disease of native coronary artery with unspecified angina pectoris
CPT/HCPCS: 93270

== ENCOUNTER 2024-11-30 14:26 | Outpatient (CLI) | payer MEDICARE, SELFPAY ==
--- NOTE | 2024-11-30 14:28 | CA_ITS ---
APPROVED REPORT EXAM: Comprehensive 2D, Doppler, and color-flow Echocardiogram Guide Dog Mobility Instructor: Justine Benoit, RCS, RVS Ht: 5 ft 11 in Wt: 194lbs BSA: 2.08 BP: 121/61 mmHg Indications: LVF, CAD, CKD, COPD, BEAU, Ex-smoker, SOB 2D Dimensions Aortic Root 2.93 cm LA Volume 60.00 mL Left Atrium 3.21 cm LA Volume Index 28.293119 mL/m2 (M/F) 16-34 RVID Base (AP4) 3.22 cm (M/F) 2.5-4.1 EF AP4 66.00 % LVOT 1.93 cm (M/F) 1.5-2.5 GL Strain -22.1 % M-Mode Dimensions RVDd 3.02 cm (0.9-2.6) LVDd 4.47 cm (3.5-5.7) Ao Diam 2.87 cm (2.0-3.7) LVDs 3.34 cm (3.5-5.7) IVSd 0.85 cm (0.6-1.1) PWd 0.72 cm (0.6-1.1) EF (Teich) 50.10% EPSs 0.93 cm FS 25.30% EDV (Teich) 91.00 mL ESV (Teich) 45.40 mL LV Diastology E Decel Time 186 (160-240 msec) E/A Ratio 0.76 MED E' 8.6 (>= 7 cm/sec) MED A' 9.40 cm/s E'/MED E' Ratio 8.38 (<= 14) LAT E' 10.9 (>= 10 cm/sec) LAT A' 8.90 cm/s E/LAT E' Ratio 6.61 (<= 14) Aortic Valve LVOT Max 128.0 (70-110 cm/s) INGRIS Index 1.32 cm2/m2 LVOT VTI 29.38 cm AoV Peak Sonny. 140.0 (50-130 cm/s) AI PHT 513.00 ms AO Mean GR. 3.90 (<5 mmHg) AO VTI 31.3 (18-25 cm) INGRIS (VTI) 2.75 (2.5-4.5 cm2) Mitral Valve MV E Max Sonny. 72.0 (40-130 cm/s) MV A Velocity 95.0 (40-130 cm/s) E/A Ratio 0.76 MV Decel. Time 186 (160-240 ms) Tricuspid Valve TR P. Velocity 247.00 cm/s RAP Estimate 10.00 mmHg RVSP 34.50 mmHg Left Ventricle The left ventricle is normal size. The left ventricular systolic function is normal. The left ventricular ejection fraction is within the normal range. There is normal left ventricular wall thickness. There is normal LV segmental wall motion. The left ventricular diastolic function is normal. LVEF is 55%. Right Ventricle The right ventricle is normal size. The right ventricular systolic function is normal. Atria The left atrium size is normal. The right atrium size is normal. There is no Doppler evidence of interatrial shunt. Aortic Valve The aortic valve is mildly thickened. Mild aortic regurgitation. There is no aortic valvular stenosis. Mitral Valve The mitral valve is normal in structure. No evidence of mitral valve stenosis. Trace mitral regurgitation. Tricuspid Valve Tricuspid valve is grossly normal in structure and function. Mild tricuspid regurgitation. RVSP is 20-25 mmHg. Pulmonic Valve The pulmonary valve is normal in structure. Trace pulmonic regurgitation. Great Vessels The aortic root is normal in size. IVC is normal in size and collapses >50% with inspiration. Pericardium There is no pericardial effusion. Other Information Study Quality: Fair Conclusion Normal biventricular systolic function. Mild AI, mild TR. Electronically signed by : Aydee Gonzales MD 12/07/2024 11:41:49
--- OUTSIDE RECORDS SUMMARY | 2024-11-30 14:28 | XMS_ITS | Continuity of Care Document ---
Author Organization [facility], PAIN MEDICINE Address [address] [place] [address] Care Team Providers Care Director Of Provider Relations Name Role Phone ELEONORA BOND Referring Provider [phone] LAWRENCE VILLARREAL Primary Care Provider [phone] MARIANGEL MEDRANO Java Sql Developer Assessment Encounter Date Assessment Date Assessment LastModified [...] Orders baclofen 10 mg tablet 2024 025 [email or web address] [facility]/Pharmacy #[id number], [address] [place], [address], 10/20/2024 14:55:38 Patient TargetsNo targets recorded. Patient InstructionsNo instructions recorded. Reason for Referral None Reported. Problems No Known Problems Procedures Surgical History Date Name Laterality Status Provider Name and Address Organization Details Recorded Time 4 Lumbar RFA Bilateral - Toan completed ELEONORA BOND MD [address] [place] [address], [phone], [facility] 03/15/2024 12:57:15 4 Lumbar MBB bilateral 2 level - Toan completed ELEONORA BOND MD [address] [place] [address], [phone], [facility] 02/19/2024 14:13:46 4 Lumbar MBB bilateral 2 level - Toan completed ELEONORA BOND MD [address] [place] [address], [phone], [facility] 02/09/2024 14:14:26 7 Back Surgery completed Pablo Holden [facility] 10/23/2023 13:04:23 0 procedure on appendix completed Pablo Holden [facility] 10/23/2023 13:04:39 Imaging Results None recorded. Procedure Notes None recorded. Medical Equipment None Reported. Allergies Allergen ID Allergen Name Allergen Category Reaction Reaction Severity Criticality Documentation Date Start Date Code Code System Note Provider Name and Address Organization Details Recorded Time 004198 Product containin g penicilli n (product) medicatio n Not available Not available Not available 10/02/2022 70834 8001 SNOMED Evette Tirado [facility] 3 13:24:16 036020 Non-stero idal anti-infl ammatory agent (product) medicatio n Not available Not available Not available 05/05/2024 75963 005 SNOMED Adriana Bello [facility] 4 13:15:13 Medications Name Sig Start Date [...] Last Updated DateTime 180.34 cm 27.5 kg/m2 82334.8 g 71 /min 99 % 99 % 97.8 [degF] 112 mm[Hg] 58 mm[Hg] Gayathri Rodriguez [facility] 13:08:14 Social History Question Answer Notes LastModified by Organizat ion Details LastModified Time Tobacco Smoking Status Former Smoker Evette blanca [facility] 10/02/2022 13:28:11 When Did You Quit Smoking? 16+yearssinc elastcigaret te Information not available 10/02/2022 What Was The Date Of Your Most Recent Tobacco Screening? 10/20/2024 [email or web address] Information not available 10/20/2024 What Is Your Relationship Status? [email or web address] Information not available 10/20/2024 Sex: Male Functional Status Question Answer Note LastModified by Organizat ion Details LastModified Time Do you use any illicit or recreational drugs? No Information not available 10/02/2022 Do you or have you ever used any other forms of tobacco or nicotine? No Information not available 10/02/2022 What is your level of alcohol consumption? None Information not available 10/02/2022 Are you currently employed? No [email or web address] Information not available 10/20/2024 Mental Status None recorded. Family History Relationship Description Onset Age of this Age Resolved Age Notes LastModified by Organization Details LastModified Time Unspecified Relation Diabetes mellitus [email or web address] Not available 10/2023 13:03:39 Unspecified Relation Hypertensive disorder [email or web address] Not available 10/2023 13:03:49 Unspecified Relation Heart disease [email or web address] Not available 10/2023 13:03:56 Medical History Condition Response Kidney Stones N Blood Transfusion N Emphysema N Colon/Rectal Disorders N Sexually Transmitted Disease N Glaucoma N Depression Y COPD N Pneumonia N Measles N Anxiety Disorder N Varicose Veins N Attempted Suicide N Arthritis N Hearing Loss Y Blood Clot N Cancer N Stroke N Radiation Therapy N Blood Thinners Y High Cholesterol Y Neurologic Disorder N Liver Disease N Fibromyalgia N Headaches N Kidney Disease Y Endocrine Disorder N Heart Problems Y Skin Problems N Meningitis N Heart Attack ([place]) Y Ulcers N Diabetes N Rheumatic Fever N Bleeding Disorder N Tuberculosis N AIDS/HIV N Asthma N Epilepsy/Seizures N Sleep Apnea Y Thyroid Disorder Y Hepatitis N Hypertension Y Osteoporosis N Past Encounters Encounter ID Performer Location Encounter Start Date Encounter Closed Date Diagnosis/Indication Diagnosis SNOMED-CT Code Diagnosis ICD10 Code Diagnosis Note [id number] ELEONORA BOND MD [facility]IN [facility]ICINE [address] [place] [address] 10/20/2024 12:52:06 10/20/2024 15:58:58 Lumbar radiculopathy 834056910 M54.16 Degenerati on of lumbar intervertebral disc 58315268 M51.369 Lumbar spondylosis 09152 0009 M47.816 Spinal claudia nosis of lumbar region 72984256 M48.062 Lumbar post-laminectomy syndrome 236397985 M96.1 Health Concerns Section Related Observation LastModified by Organization Detai ls LastModified Time None Recorded Concern Status LastModified by Organization Details LastModified Time None Recorded Payers Encounter Date Sequence Insurance Name Policy Number Policy Up Covered Member ID Up Member ID Guarantor Name 10/20/2024 INSURANCE [employer] Jae Mancilla Notes Date Note [...] home exercise plan (HEP)Date completed: 10/02/22 Previous Inserting Operator:none Jae Mancilla is a 69 yo male here today for 3 mth Med RF. Pt reports the baclofen gives him about 60% pain relief, helps him sleep through the night. ELEONORA BOND MD [address] [place] [address], [phone], [place] [facility] 10/20/2024 13:41:03
--- OUTSIDE RECORDS SUMMARY | 2024-11-30 14:29 | XMS_ITS | Data Portability ---
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 Referral None recorded. Procedures None recorded. Surgeries None recorded. Imaging None recorded. Medication Orders baclofen 10 mg tablet 2024 025 [email or web address] [facility]/Pharmacy #[id number], [address] [place] [address], [phone], 10/20/2024 14:55:38 baclofen 10 mg tablet 2023 024 [facility]/Pharmacy #[id number], [address] [place], [address], 05/05/2024 13:29:21 Patient TargetsNo targets recorded. Patient InstructionsNo instructions recorded. Reason for Referral None Reported. Problems No Known Problems Procedures Surgical History Date Name Laterality Status Provider Name and Address Organization Details Recorded Time 4 Lumbar RFA Bilateral - Toan completed ELEONORA JOYA MD [address] [place] [address], [phone], [facility] 03/15/2024 12:57:15 4 Lumbar MBB bilateral 2 level - Toan completed ELEONORA JOYA MD [address] [place] [address], [phone], [facility] 02/19/2024 14:13:46 4 Lumbar MBB bilateral 2 level - Toan completed ELEONORA JOYA MD [address] [place] [address], [phone], [facility] 02/09/2024 14:14:26 7 Back Surgery completed [facility] 10/23/2023 13:04:23 0 procedure on appendix completed [facility] 10/23/2023 13:04:39 Imaging Results None recorded. Procedure Notes None recorded. Medical Equipment None Reported. Allergies Allergen ID Allergen Name Allergen Category Reaction Reaction Severity Criticality Documentation Date Start Date Code Code System Note Provider Name and Address Organization Details Recorded Time 532550 Product containin g penicilli n (product) medicatio n Not available Not available Not available 10/02/2022 12236 8001 SNOMED Evette Tirado [facility] 13:24:16 720097 Non-stero idal anti-infl ammatory agent (product) medicatio n Not available Not available Not available 05/05/2024 80593 005 [id number] Bello [facility], [facility] 13:15:13 Medications Name Sig Start [...] Updated DateTime 4 180.34 cm 24.7 kg/m2 92569.8 5 g 97.9 [degF] 97 % 97 % 86 /min 110 mm[Hg] 60 mm[Hg] Adriana Bello [facility] 4 13:12:04 Date Recorded Body height Body mass index (BMI) Body weight Body temperature Oxygen saturation Oxygen saturation in Arterial blood by Pulse oximetry Heart rate Systolic blood pressure Diastolic blood pressure Provider Name and Address Organization Details Last Updated DateTime 5 180.34 cm 27.2 kg/m2 99226.2 1 g 97.2 [degF] 98 % 98 % 72 /min 108 mm[Hg] 58 mm[Hg] Mariam Kashmir [facility] 5 13:16:06 Date Recorded Body height Body mass index (BMI) Body weight Heart rate Oxygen saturation Oxygen saturation in Arterial blood by Pulse oximetry Body temperature Systolic blood pressure Diastolic blood pressure Provider Name and Address Organization Details Last Updated DateTime 5 180.34 cm 27.5 kg/m2 63701.8 g 71 /min 99 % 99 % 97.8 [degF] 112 mm[Hg] 58 mm[Hg] Gayathri Rodriguez [facility] 13:08:14 Social History Question Answer Notes LastModified by Organizat ion Details LastModified Time Tobacco Smoking Status Former Smoker Evettejo ann blanca [facility] 10/02/2022 13:28:11 When Did You Quit Smoking? 16+yearssinc elastcigaret te Information not available 10/02/2022 What Was The Date Of Your Most Recent Tobacco Screening? 10/20/2024 [email or web address] Information not available 10/20/2024 What Is Your Relationship Status? [email or web address] Information not available 10/20/2024 Sex: Male Functional [...] available 10/02/2022 Are you currently employed? No [email or web address] Information not available 10/20/2024 Mental Status None recorded. Family History Relationship Description Onset Age of this Age Resolved Age Notes LastModified by Organization Details LastModified Time Unspecified Relation Diabetes mellitus Not available 10/2023 13:03:39 Unspecified Relation Hypertensive disorder [email or web address] Not available 10/2023 13:03:49 Unspecified Relation Heart disease [email or web address] Not available 10/2023 13:03:56 Medical History Condition Response Kidney Stones N Blood Transfusion N Emphysema N Colon/Rectal Disorders N Sexually Transmitted Disease N COPD N Depression Y Glaucoma N Pneumonia N Measles N Attempted Suicide N Varicose Veins N Anxiety Disorder N Hearing Loss Y Arthritis N Blood Clot N Cancer N Stroke N Radiation Therapy N Blood Thinners Y High Cholesterol Y Neurologic Disorder N Liver Disease N Headaches N Fibromyalgia N Endocrine Disorder N Kidney Disease Y Heart Problems Y Skin Problems N Meningitis N Ulcers N Heart Attack ([place]) Y Diabetes N Rheumatic Fever N Bleeding Disorder N Tuberculosis N AIDS/HIV N Asthma N Epilepsy/Seizures N Sleep Apnea Y Thyroid Disorder Y Hepatitis N Hypertension Y Osteoporosis N Past Encounters Encounter ID Performer Location Encounter Start Date Encounter Closed Date Diagnosis/Indication Diagnosis SNOMED-CT Code Diagnosis ICD10 Code Diagnosis Note [id number] ELEONORA JOYA MD PAIN MEDICINE [address] [place] [address] 1 10/02/2022 13:07:58 10/02/2022 14:15:26 Degeneration of lumbar intervertebral disc 64263999 M51.36 Lumbar radiculopathy 128 297433 M54.16 [id number] ELEONORA JOYA MD PAIN MEDICINE [address] [place] [address] 1 01/03/2023 12:56:54 01/03/2023 15:15:43 Degeneration of lumbar intervertebral disc 16648788 M51.36 Lumbar radiculopathy 128 042273 M54.16 Lumbar post-laminectomy syndrome 435999780 M96.1 [id number] RACH COLIN PA-C [facility]IN [facility] [address] [place] [address] 1 04/02/2023 12:44:01 04/02/2023 15:54:45 Lumbar post-laminectomy syndrome 778795486 M96.1 Degenerati on of lumbar intervertebral disc 96872672 M51.36 Lumbar radiculopathy 128 980167 M54.16 [id number] ELEONORA JOYA MD PAIN MEDICINE [address] [place] [address] 1 06/18/2023 12:59:16 06/18/2023 15:00:30 Degeneration of lumbar intervertebral disc 41308567 M51.36 Lumbar radiculopathy 128 085528 M54.16 Lumbar post-laminectomy syndrome 144181291 M96.1 Opioid dependence 212078 00 F11.23 [id number] ELEONORA JOYA MD PAIN MEDICINE [address] [place] [address] 1 07/09/2023 13:01:59 07/10/2023 09:21:49 Lumbar radiculopathy 195722838 M54.16 Lumbar post-laminectomy syndrome 258389565 M96.1 [id number] ELEONORA JOYA MD PAIN MEDICINE [address] [place] [address] 1 07/23/2023 12:50:58 07/23/2023 16:14:09 Degeneration of lumbar intervertebral disc 50284271 M51.36 Displaceme nt of lumbar intervertebral disc 7166662128 M51.26 Lumbar radiculopathy 128 006417 M54.16 Lumbar spondylosis 66629 0009 M47.816 Low back pain 872535559 M54.51 Spinal claudia nosis of lumbar region 75367859 M48.062 Inflammati on of sacroiliac joint 77469415 M46.1 Lumbar post-laminectomy syndrome 751361855 M96.1 [id number] ELEONORA JOYA MD PAIN MEDICINE [address] [place] [address] 1 08/14/2023 14:44:11 08/15/2023 10:15:15 Degeneration of lumbar intervertebral disc 10942453 M51.36 Lumbar radiculopathy 128 979789 M54.16 Lumbar post-laminectomy syndrome 382844166 M96.1 [id number] ELEONORA OJYA MD PAIN MEDICINE [address] [place] [address] 1 08/20/2023 13:10:26 08/20/2023 14:42:16 Lumbar radiculopathy 998501697 M54.16 Lumbar spondylosis 08802 0009 M47.816 Lumbar post-laminectomy syndrome 968444515 M96.1 [id number] ELEONORA JOYA MD PAIN MEDICINE [address] [place] [address] 1 09/17/2023 13:07:38 09/18/2023 07:53:29 Degeneration of lumbar intervertebral disc 35112565 M51.36 Lumbar radiculopathy 128 486393 M54.16 Lumbar post-laminectomy syndrome 183802332 M96.1 [id number] ERICA GARZA PA-C [facility] [address] [address] [place] [address] 10/23/2023 12:44:54 10/24/2023 10:50:05 Low back pain 345089137 M54.50 Intratheca l implantable infusion pump in situ 7706515463 Z97.8 Lumbar radiculopathy 128 769210 M54.16 [id number] ELEONORA JOYA MD PAIN MEDICINE [address] [place] [address] 1 11/12/2023 13:00:32 11/12/2023 16:18:29 Lumbar radiculopathy 295798752 M54.16 Degenerati on of lumbar intervertebral disc 97799272 M51.36 Lumbar post-laminectomy syndrome 040228280 M96.1 Long-term drug therapy 821641534 Z79.899 [id number] GUILLERMO MOORE MD [facility] [address] [address] [place] [address] 0 01/06/2024 12:42:40 01/10/2024 04:16:12 [id number] ELEONORA JOYA MD PAIN MEDICINE [address] [place] [address] 1 01/14/2024 13:58:17 01/15/2024 04:16:46 Degeneration of lumbar intervertebral disc 67598930 M51.36 Displaceme nt of lumbar intervertebral disc 2752509925 M51.26 Lumbar spondylosis 32962 0009 M47.816 Spinal claudia nosis of lumbar region 00395244 M48.062 Lumbar post-laminectomy syndrome 534585617 M96.1 [id number] GUILLERMO MOORE MD SURGERY SCHEDULE [address] [place] [address] 1 01/13/2024 14:18:45 01/16/2024 16:24:57 [id number] GUILLERMO MOORE MD [facility] [address] [place] [address] 0 01/27/2024 11:00:38 01/28/2024 04:43:22 Chronic pain syndrome 131945641 G89.4 [id number] ELEONORA JOYA MD [facility] [address] [place] [address] 1 02/09/2024 12:37:51 02/09/2024 14:30:39 Lumbar spondylosis 108159725 M47.816 [id number] ELEONORA JOYA MD [facility] [address] [place] [address], [facility] [address] [place] [address] 1 02/19/2024 13:22:11 02/19/2024 14:52:34 Lumbar spondylosis 064423727 M47.816 [id number] MITCHELL RUIZ PA-C [facility] [address] 0 02/24/2024 10:47:15 02/27/2024 13:42:31 Infection of skin and/or subcutaneous tissue 18408641 L08.9 [id number] ELEONORA JOYA MD [facility] [address] [facility] [place] [address] 1 03/15/2024 12:27:45 03/15/2024 13:54:32 Lumbar spondylosis 078573420 M47.816 [id number] ELEONORA JOYA MD PAIN MEDICINE [address] [place] [address] 1 05/05/2024 12:58:18 05/05/2024 15:22:31 Lumbar radiculopathy 471690832 M54.16 Lumbar spondylosis 50627 0009 M47.816 Spinal claudia nosis of lumbar region 97201389 M48.062 Lumbar post-laminectomy syndrome 101310290 M96.1 [id number] ELEONORA JOYA MD PAIN MEDICINE [address] [place] [address] 1 08/04/2024 12:56:50 08/04/2024 16:32:12 Degeneration of lumbar intervertebral disc 95015998 M51.369 Lumbar radiculopathy 128 294324 M54.16 Lumbar spondylosis 76630 0009 M47.816 Spinal claudia nosis of lumbar region 38814112 M48.062 Lumbar post-laminectomy syndrome 017412282 M96.1 [id number] ELEONORA JOYA MD PAIN MEDICINE [address] [place] [address] 1 10/20/2024 12:52:06 10/20/2024 15:58:58 Lumbar radiculopathy 319764787 M54.16 Degenerati on of lumbar intervertebral disc 84006638 M51.369 Lumbar spondylosis 38589 0009 M47.816 Spinal claudia nosis of lumbar region 43253575 M48.062 Lumbar post-laminectomy syndrome 085918167 M96.1 Health Concerns Section Related Observation LastModified by Organization Detai ls LastModified Time None Recorded Concern Status LastModified by Organization Details LastModified Time None Recorded Advance Directives Directive None Recorded Payers Insurance Date Sequence Insurance Name Policy Number Policy Up Covered Member ID Up Member ID Guarantor Name 05/11/2024 ZENITH INSUR[employer] Jae Mancilla 03/09/2024 1 [employer] (MEDICARE REPLACEMENT/A DVANTAGE - HMO) Jae Mancilla [id number] Jae Mancilla 03/09/2024 GENERIC INSURANCE - MOVED-HOLD Jae Mancilla Notes Date Note Type Note Provider Name and Address Organization Details Recorded Time 4 text/html Mr. Mancilla is s/p removal of intrathecal pain pump system on 12/19/23. He underwent medial branch blocks with Dr. Joya on 02/18. At that time he brought to Dr. Joya's attention some redness superior to his abdominal incision. He was started on Bactrim. He reports that since that time the area has improved and become less red. He denies fever. MITCHELL RUIZ PA-C [facility] [place], [address], [facility] 02/24/2024 11:19:12 4 text/html Injection follow upReported bypatient.Location:low back Most recent procedures:lumbar MBB RFA (Cesario L4-5 RFA); date: (03/15/24) % of reliefpain relief 65% Duration of relief:ongoing Severity:current pain 5/10; average pain 5/10 Woundinjection site healed well; no fever; no bleeding ELEONORA JOYA MD [facility] [place], [address], [facility] 05/05/2024 13:29:23 5 text/html Pain Management L-spine [...] home exercise plan (HEP)Date completed: 10/02/22 Previous Upholsterer Helper:none Jae Mancilla is a 68 yo male here today for a 2 mth FUP med refill. Pt states he had his pain pump removed on 12/19/[address] Guillermo Moore, Pt reports he is in a lot of pain in middle of lower back. Pt also states he has not been taking the gabapentin for about 1 mth. ELEONORA JOYA MD [address] [place] [address], [phone], [facility] 08/04/2024 13:29:43 5 text/html Pain Management L-spine [...] home exercise plan (HEP)Date completed: 10/02/22 Previous Upholsterer Helper:none Jae Mancilla is a 69 yo male here today for 3 mth Med RF. Pt reports the baclofen gives him about 60% pain relief, helps him sleep through the night. ELEONORA JOYA MD [address] [place] [address], [phone], [facility] 10/20/2024 13:41:03
== END 2024-11-30 23:59 | disposition home or self-care (01) ==
LOC: RT 14:26
PROVIDERS: PCP Family Medicine; Visit Provider Physician Assistant
DX: I08.2 Rheumatic disorders of both aortic and tricuspid valves (principal); I25.119 Atherosclerotic heart disease of native coronary artery with unspecified angina pectoris; N18.9 Chronic kidney disease, unspecified; J44.9 Chronic obstructive pulmonary disease, unspecified; G47.33 Obstructive sleep apnea (adult) (pediatric); Z87.891 Personal history of nicotine dependence
CPT/HCPCS: 93306